=== PATIENT | male | born 1960 | race Caucasian/White ===

== ENCOUNTER → 2017-08-10 | Outpatient (CLI) | payer OTHER ==
[2017-08-10 19:57] LABS: ALBUMIN 3.7 GM/DL (3.2-5.2); ALBUMIN/GLOBULIN RATIO 1.03 (1.00-1.93); ALKALINE PHOSPHATASE 93 U/L (45-117); ALT/SGPT 45 U/L (12-78); ANION GAP 6 MEQ/L (8-16); AST/SGOT 32 U/L (7-37); BILIRUBIN,TOTAL 0.5 MG/DL (0.2-1.0); BLOOD UREA NITROGEN 14 MG/DL (7-18); CALCIUM LEVEL 8.5 MG/DL (8.5-10.1); CARBON DIOXIDE LEVEL 30 MEQ/L (21-32); CHLORIDE LEVEL 103 MEQ/L (98-107); CREATININE FOR GFR 1.23 MG/DL (0.70-1.30); GLOMERULAR FILTRATION RATE > 60.0 (>56); GLUCOSE, FASTING 84 MG/DL (70-105); POTASSIUM SERUM 3.6 MEQ/L (3.5-5.1); SODIUM LEVEL 139 MEQ/L (136-145); TOTAL PROTEIN 7.3 GM/DL (6.4-8.2)
[2017-08-10 20:00] LABS: BASO % 0.4 % (0.0-1.0); EOS # 0.3 10^3/uL (0.0-0.50); EOS % 3.7 % (0.0-3.0); IMMATURE GRANULOCYTE % 0.4 % (0-0); LYMPH # 1.5 10^3/uL (1.5-4.5); LYMPH % 20.3 % (24.0-44.0); MEAN CORPUSCULAR HEMOGLOBIN 36.2 pg (27.0-33.0); MEAN CORPUSCULAR HGB CONC 36.1 g/dl (32.0-36.5); MEAN CORPUSCULAR VOLUME 100.4 fl (80.0-96.0); MONO # 0.6 10^3/uL (0.0-0.8); MONO % 7.8 % (0.0-5.0); NEUTROPHILS % 67.4 % (36.0-66.0); PLATELET COUNT, AUTOMATED 162 10^3/uL (150-450); WHITE BLOOD COUNT 7.4 10^3/uL (4.0-10.0)
== END ==
LOC: M WUC 14:46
PROVIDERS: ATTEND Physician Assistant
DX: R11.10 Vomiting, unspecified (principal)

== ENCOUNTER → 2017-11-27 | Outpatient (CLI) | payer OTHER ==
[2017-11-27 16:34] LABS: HEMATOCRIT 46.4 % (42.0-52.0); HEMOGLOBIN 16.9 g/dl (14.0-18.0); MEAN CORPUSCULAR HEMOGLOBIN 36.4 pg (27.0-33.0); MEAN CORPUSCULAR HGB CONC 36.4 g/dl (32.0-36.5); PLATELET COUNT, AUTOMATED 172 10^3/uL (150-450); RED BLOOD COUNT 4.64 10^6/uL (4.30-6.10); RED CELL DISTRIBUTION WIDTH 12.5 % (11.5-14.5); WHITE BLOOD COUNT 6.8 10^3/uL (4.0-10.0)
[2017-11-27 16:42] LABS: APPEARANCE, URINE CLEAR (CLEAR); BACTERIA, URINE AUTO NEGATIVE (NEGATIVE); BILIRUBIN, URINE AUTO NEGATIVE (NEGATIVE); BLOOD, URINE BLOOD 1+ (NEGATIVE); COLOR, URINE YELLOW (YELLOW); GLUCOSE, URINE (UA) AUTO NEGATIVE (NEGATIVE); KETONE, URINE AUTO NEGATIVE (NEGATIVE); LEUKOCYTE ESTERASE, URINE AUTO NEGATIVE (NEGATIVE); MUCUS, URINE SMALL (NEGATIVE); NITRITE, URINE AUTO NEGATIVE (NEGATIVE); PROTEIN, URINE AUTO NEGATIVE (NEGATIVE); RBC, URINE AUTO 5 /HPF (0-3); SPECIFIC GRAVITY URINE AUTO 1.023 (1.002-1.035); SQUAMOUS EPITHELIAL CELL UR AU 0 /HPF (0-6); WBC, URINE AUTO 0 /HPF (0-3)
[2017-11-27 16:52] LABS: ALBUMIN/GLOBULIN RATIO 1.14 (1.00-1.93); ALKALINE PHOSPHATASE 99 U/L (45-117); ALT/SGPT 36 U/L (12-78); ANION GAP 8 MEQ/L (8-16); AST/SGOT 29 U/L (7-37); BILIRUBIN,TOTAL 0.7 MG/DL (0.2-1.0); BLOOD UREA NITROGEN 18 MG/DL (7-18); CALCIUM LEVEL 8.7 MG/DL (8.5-10.1); CARBON DIOXIDE LEVEL 26 MEQ/L (21-32); CHLORIDE LEVEL 104 MEQ/L (98-107); CHOLESTEROL LEVEL 197 MG/DL (<200); CREATININE FOR GFR 1.24 MG/DL (0.70-1.30); GLOMERULAR FILTRATION RATE > 60.0 (>56); GLUCOSE, FASTING 79 MG/DL (70-100); HDL CHOLESTEROL 50 MG/DL (>40); LDL CHOLESTEROL 124.6 MG/DL (<100); MAGNESIUM LEVEL 1.9 MG/DL (1.8-2.4); NON-HDL-C 147 MG/DL; SODIUM LEVEL 138 MEQ/L (136-145); TOTAL PROTEIN 7.5 GM/DL (6.4-8.2); TRIGLYCERIDES LEVEL 112 MG/DL (<150)
== END ==
LOC: M WUC 13:52
DX: D75.89 Other specified diseases of blood and blood-forming organs (principal); I10 Essential (primary) hypertension; E78.00 Pure hypercholesterolemia, unspecified; F41.9 Anxiety disorder, unspecified; R31.29 Other microscopic hematuria
CPT/HCPCS: 83735

== ENCOUNTER 2017-12-20 18:46 | Emergency (ER) | payer OTHER | END 2017-12-20 20:19 | disposition home or self-care (01) | LOC: M ED 18:46 | DX: S63.91XA Sprain of unspecified part of right wrist and hand, initial encounter (principal); W01.0XXA Fall on same level from slipping, tripping and stumbling without subsequent striking against object, initial encounter; Y92.59 Other trade areas as the place of occurrence of the external cause; Y99.0 Civilian activity done for income or pay; I10 Essential (primary) hypertension; K21.9 Gastro-esophageal reflux disease without esophagitis; Z79.899 Other long term (current) drug therapy; Z88.1 Allergy status to other antibiotic agents | CPT/HCPCS: 73110 ==

== ENCOUNTER 2018-02-22 09:35 | Day surgery (SDC) | payer OTHER ==
[2018-02-22] MEDS: NS 1,000 ML IV (10:45)
[2018-02-22] MEDS ORDERED: PROPOFOL 200 MG/20 ML VIAL As Ordered ×3 (11:14→11:37)
[2018-02-22] MEDS ORDERED: LIDOCAINE 2% INJ 100 MG/5 ML SDV (FOR ANES.) As Ordered (11:14)
== END 2018-02-22 12:13 | disposition home or self-care (01) ==
LOC: M OPP 09:35
DX: Z12.11 Encounter for screening for malignant neoplasm of colon (principal); K63.5 Polyp of colon; D12.2 Benign neoplasm of ascending colon; K57.30 Diverticulosis of large intestine without perforation or abscess without bleeding; I10 Essential (primary) hypertension; F41.9 Anxiety disorder, unspecified; K21.9 Gastro-esophageal reflux disease without esophagitis; K58.9 Irritable bowel syndrome, unspecified; Z79.899 Other long term (current) drug therapy; Z88.8 Allergy status to other drugs, medicaments and biological substances; Z80.0 Family history of malignant neoplasm of digestive organs; Z82.49 Family history of ischemic heart disease and other diseases of the circulatory system
CPT/HCPCS: 45385

== ENCOUNTER → 2018-06-17 | Outpatient (CLI) | payer OTHER ==
[2018-06-17 17:53] LABS: ALBUMIN 3.9 GM/DL (3.2-5.2); ALBUMIN/GLOBULIN RATIO 1.15 (1.00-1.93); ALKALINE PHOSPHATASE 84 U/L (45-117); ALT/SGPT 30 U/L (12-78); ANION GAP 7 MEQ/L (8-16); AST/SGOT 19 U/L (7-37); BILIRUBIN,TOTAL 0.4 MG/DL (0.2-1.0); BLOOD UREA NITROGEN 17 MG/DL (7-18); CARBON DIOXIDE LEVEL 27 MEQ/L (21-32); CHLORIDE LEVEL 106 MEQ/L (98-107); CHOLESTEROL LEVEL 193 MG/DL (<200); CHOLESTEROL RISK RATIO 3.446 (<5); CREATININE FOR GFR 1.33 MG/DL (0.70-1.30); GLOMERULAR FILTRATION RATE 59.2 (>56); GLUCOSE, FASTING 82 MG/DL (70-100); HDL CHOLESTEROL 56 MG/DL (>40); LDL CHOLESTEROL 112 MG/DL (<100); MAGNESIUM LEVEL 1.9 MG/DL (1.8-2.4); NON-HDL-C 137 MG/DL; POTASSIUM SERUM 4.4 MEQ/L (3.5-5.1); PROSTATIC SPECIFIC AG MONITOR 0.41 NG/ML (< 4.0); SODIUM LEVEL 140 MEQ/L (136-145); TOTAL PROTEIN 7.3 GM/DL (6.4-8.2); TRIGLYCERIDES LEVEL 125 MG/DL (<150)
[2018-06-17 18:02] LABS: FOLATE 16.8 NG/ML
== END ==
LOC: M WUC 15:10
DX: I10 Essential (primary) hypertension (principal); Z12.5 Encounter for screening for malignant neoplasm of prostate; E53.8 Deficiency of other specified B group vitamins

== ENCOUNTER → 2019-04-03 | Outpatient (CLI) | payer OTHER ==
[~2019-04-03] MED LIST: ALLE180T33 PO; AMLO10CA22 PO; AMLO5CAP44 PO; CITA20TA6 PO; DICY10SO PO; FLUTISP; FOLI1TAB11 PO; FOLI800C PO; GREE1TAB PO; HYOS0.1248 PO; IBUP-1022 PO; LEVOTAB10 PO; OMEP20CA4 PO; OMEP40CA2 PO; ONDA4SOL PO; VENTAER INH; VITA500T17 PO; XANA0.25 PO; ZOFR4TAB16 PO; allergy shots
--- NOTE | 2019-04-04 07:52 | REP ---
Left knee five views : There is no fracture or dislocation. Mineralization and joint spaces are normal. There are no calcifications or foreign bodies. Impression: Negative left knee . Electronically Signed by El Vizcaino MD 04/03/2019 01:03 P
== END ==
LOC: M WUC 12:38
PROVIDERS: ATTEND Physician Assistant
DX: S86.112A Strain of other muscle(s) and tendon(s) of posterior muscle group at lower leg level, left leg, initial encounter (principal)

== ENCOUNTER → 2019-04-18 | Outpatient (REF) | payer OTHER ==
[2019-04-18 17:41] LABS: HEMATOCRIT 48.1 % (42.0-52.0); HEMOGLOBIN 17.3 g/dl (13.5-17.5); MEAN CORPUSCULAR HEMOGLOBIN 36.9 pg (27.0-33.0); MEAN CORPUSCULAR VOLUME 102.6 fl (80.0-96.0); PLATELET COUNT, AUTOMATED 179 10^3/uL (150-450); RED BLOOD COUNT 4.69 10^6/uL (4.30-6.10); WHITE BLOOD COUNT 7.7 10^3/uL (4.0-10.0)
[2019-04-18 18:01] LABS: ALBUMIN 4.1 GM/DL (3.2-5.2); BILIRUBIN,TOTAL 0.5 MG/DL (0.2-1.0); CALCIUM LEVEL 8.6 MG/DL (8.5-10.1); CHOLESTEROL RISK RATIO 3.705 (<5); CREATININE FOR GFR 1.31 MG/DL (0.70-1.30); MAGNESIUM LEVEL 2.3 MG/DL (1.8-2.4); POTASSIUM SERUM 3.9 MEQ/L (3.5-5.1); TOTAL PROTEIN 7.7 GM/DL (6.4-8.2)
[2019-04-21 00:08] LABS: Lyme Disease IgG/IgM Antibodie <0.91 ISR (0.00-0.90); Lyme Disease IgM Ab Quantitati <0.80 index (0.00-0.79)
== END ==
LOC: M SFHCPLAZ 15:36
PROVIDERS: ATTEND Internal Medicine
DX: D75.89 Other specified diseases of blood and blood-forming organs (principal); I10 Essential (primary) hypertension; E78.00 Pure hypercholesterolemia, unspecified

== ENCOUNTER → 2019-11-16 | Outpatient (REF) | payer OTHER ==
[~2019-11-16] MED LIST changes: +OMEP1CAP73 PO; -OMEP20CA4 PO; -OMEP40CA2 PO; +OMEP40CA97 PO
[2019-11-16 11:38] LABS: APPEARANCE, URINE CLEAR (CLEAR); BACTERIA, URINE AUTO NEGATIVE (NEGATIVE); BILIRUBIN, URINE AUTO NEGATIVE (NEGATIVE); BLOOD, URINE BLOOD 1+ (NEGATIVE); COLOR, URINE YELLOW (YELLOW); GLUCOSE, URINE (UA) AUTO NEGATIVE (NEGATIVE); KETONE, URINE AUTO NEGATIVE (NEGATIVE); LEUKOCYTE ESTERASE, URINE AUTO NEGATIVE (NEGATIVE); NITRITE, URINE AUTO NEGATIVE (NEGATIVE); PROTEIN, URINE AUTO NEGATIVE (NEGATIVE); RBC, URINE AUTO 3 /HPF (0-3); SPECIFIC GRAVITY URINE AUTO 1.012 (1.002-1.035); SQUAMOUS EPITHELIAL CELL UR AU 0 /HPF (0-6); UROBILINOGEN, URINE AUTO 0.2 mg/dL (0.0-2.0); WBC, URINE AUTO 0 /HPF (0-3)
[2019-11-16 11:51] LABS: ALBUMIN 3.8 GM/DL (3.2-5.2); ALT/SGPT 40 U/L (12-78); BILIRUBIN,TOTAL 0.3 MG/DL (0.2-1.0); BLOOD UREA NITROGEN 15 MG/DL (7-18); CALCIUM LEVEL 9.4 MG/DL (8.5-10.1); CARBON DIOXIDE LEVEL 27 MEQ/L (21-32); CHLORIDE LEVEL 107 MEQ/L (98-107); CHOLESTEROL LEVEL 193 MG/DL (<200); CHOLESTEROL RISK RATIO 4.595 (<5); CREATININE FOR GFR 1.23 MG/DL (0.70-1.30); GLOMERULAR FILTRATION RATE > 60.0 (>56); GLUCOSE, FASTING 88 MG/DL (70-100); HDL CHOLESTEROL 42 MG/DL (>40); LDL CHOLESTEROL 94 MG/DL (<100); NON-HDL-C 151 MG/DL; SODIUM LEVEL 139 MEQ/L (136-145); TOTAL PROTEIN 7.6 GM/DL (6.4-8.2); TRIGLYCERIDES LEVEL 284 MG/DL (<150)
[2019-11-16 11:52] LABS: HEMATOCRIT 47.8 % (42.0-52.0); HEMOGLOBIN 17.1 g/dl (13.5-17.5); MEAN CORPUSCULAR HEMOGLOBIN 37.5 pg (27.0-33.0); MEAN CORPUSCULAR HGB CONC 35.8 g/dl (32.0-36.5); MEAN CORPUSCULAR VOLUME 104.8 fl (80.0-96.0); PLATELET COUNT, AUTOMATED 181 10^3/uL (150-450); RED BLOOD COUNT 4.56 10^6/uL (4.30-6.10); WHITE BLOOD COUNT 7.6 10^3/uL (4.0-10.0)
[2019-11-16 11:55] LABS: FOLATE 12.8 NG/ML; VITAMIN B12 LEVEL 746 PG/ML
[2019-11-16 12:14] LABS: MAU/CREAT RATIO 4.6 MCG/MG (0.0-30.0)
== END ==
LOC: M SFHCPLAZ 09:03
PROVIDERS: ATTEND Internal Medicine
DX: K21.9 Gastro-esophageal reflux disease without esophagitis (principal); E78.00 Pure hypercholesterolemia, unspecified; I10 Essential (primary) hypertension; R31.29 Other microscopic hematuria; E53.8 Deficiency of other specified B group vitamins
CPT/HCPCS: 36415; 80053; 80061; 81001; 82043; 82607; 82746; 83735; 85027; G0103

== ENCOUNTER → 2020-11-14 | Outpatient (CLI) | payer OTHER ==
[2020-11-14 16:51] LABS: ALT/SGPT 50 U/L (12-78); BILIRUBIN,TOTAL 0.3 MG/DL (0.2-1.0); BLOOD UREA NITROGEN 19 MG/DL (7-18); CALCIUM LEVEL 9.4 MG/DL (8.5-10.1); CARBON DIOXIDE LEVEL 26 MEQ/L (21-32); CHLORIDE LEVEL 104 MEQ/L (98-107); CHOLESTEROL LEVEL 177 MG/DL (<200); GLOMERULAR FILTRATION RATE > 60.0 (>56); GLUCOSE, FASTING 83 MG/DL (70-100); HDL CHOLESTEROL 50 MG/DL (>40); LDL CHOLESTEROL 111 MG/DL (<100); MAGNESIUM LEVEL 1.8 MG/DL (1.8-2.4); NON-HDL-C 127 MG/DL; POTASSIUM SERUM 4.2 MEQ/L (3.5-5.1); SODIUM LEVEL 136 MEQ/L (136-145); TOTAL PROTEIN 7.3 GM/DL (6.4-8.2); TRIGLYCERIDES LEVEL 82 MG/DL (<150)
== END ==
LOC: M WUC 14:08
PROVIDERS: ATTEND Internal Medicine
DX: E78.00 Pure hypercholesterolemia, unspecified (principal); I10 Essential (primary) hypertension

== ENCOUNTER 2020-12-06 05:51 | Inpatient (IN) | payer OTHER ==
[~2020-12-06] VITALS: Ht 182.9 cm; Wt 93.3 kg
[2020-12-06] MEDS ORDERED: ONDANSETRON 4MG/2ML VIAL IV ONE (06:15)
[2020-12-06] MEDS ORDERED: NITROGLYCERIN 2% OINT 1 GM *U/D* PKT TOP ONE (06:20)
[2020-12-06] MEDS ORDERED: ASPIRIN 81 MG CHEW TABLET PO ONE (06:20)
[2020-12-06 06:23] LABS: BASO % 0.2 % (0.0-1.0); EOS # 0.1 10^3/uL (0.0-0.5); EOS % 1.1 % (0.0-3.0); HEMATOCRIT 45.8 % (42.0-52.0); HEMOGLOBIN 16.7 g/dl (13.5-17.5); LYMPH # 1.4 10^3/uL (1.5-5.0); MEAN CORPUSCULAR HEMOGLOBIN 38.1 pg (27.0-33.0); MEAN CORPUSCULAR HGB CONC 36.5 g/dl (32.0-36.5); MEAN CORPUSCULAR VOLUME 104.6 fl (80.0-96.0); MONO # 0.8 10^3/uL (0.0-0.8); MONO % 6.3 % (2.0-8.0); NEUTROPHILS % 80.8 % (36.0-66.0); PLATELET COUNT, AUTOMATED 204 10^3/uL (150-450); RED BLOOD COUNT 4.38 10^6/uL (4.30-6.10); WHITE BLOOD COUNT 12.3 10^3/uL (4.0-10.0)
--- NOTE | 2020-12-06 06:33 | REPVR ---
PROCEDURE INFORMATION: Exam: XR Chest Exam date and time: 12/06/2020 6:04 AM Age: 60 years old Clinical indication: Other: Chest pain TECHNIQUE: Imaging protocol: XR of the chest Views: 1 view. COMPARISON: No relevant prior studies available. FINDINGS: Lungs: No consolidation. Elevation of the left hemidiaphragm is present. Small subsegmental atelectases are seen in both lower lungs. Pleural spaces: Unremarkable. No pleural effusion. No pneumothorax. Heart/Mediastinum: Unremarkable. No cardiomegaly. Bones/joints: Unremarkable. IMPRESSION: Small subsegmental pulmonary atelectases are seen in both lower lobes, otherwise normal chest. Electronically signed by: Michael Gutierrez On 12/06/2020 06:32:50 AM
[2020-12-06 06:51] LABS: BLOOD UREA NITROGEN 12 MG/DL (7-18); CALCIUM LEVEL 8.9 MG/DL (8.5-10.1); CARBON DIOXIDE LEVEL 23 MEQ/L (21-32); CHLORIDE LEVEL 110 MEQ/L (98-107); CK-MB VALUE MASS 1.3 NG/ML (<3.6); CPK CREATINE PHOSPHOKINASE 113 U/L (39-308); CREATININE FOR GFR 1.19 MG/DL (0.70-1.30); ETHYL ALCOHOL (ETHANOL) 0.051 % (0.000-0.010); GLOMERULAR FILTRATION RATE > 60.0 (>56); GLUCOSE, FASTING 104 MG/DL (70-100); MB/CK RELATIVE INDEX 1.15 (< OR =4); POTASSIUM SERUM 3.9 MEQ/L (3.5-5.1); SODIUM LEVEL 141 MEQ/L (136-145); TROPONIN I < 0.02 NG/ML (< 0.10)
[2020-12-06] MEDS ORDERED: NS 500 ML IV ONE (06:55)
[2020-12-06] MEDS ORDERED: GI COCKTAIL 50ML BTL(HYOSCYAMINE/MAALOX/LIDOCAINE VISCOUS)(1:3:1) PO ONE (06:55)
[2020-12-06] MEDS ORDERED: MORPHINE 2 MG/ML 1ML VIAL (J2270) IV ONE (06:55)
[2020-12-06 06:58] LABS: INR 0.92; PROTHROMBIN TIME 12.6 SECONDS (12.5-14.3)
[2020-12-06 06:59] LABS: PARTIAL THROMBOPLASTIN TIME 31.6 SECONDS (24.2-38.5)
--- NOTE | 2020-12-06 07:22 | ECGEPIP ---
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
--- NOTE | 2020-12-06 07:23 | ECGEPIP ---
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
[2020-12-06] MEDS ORDERED: MORPHINE 4 MG/ML 1ML VIAL/SYRINGE (J2270) As Ordered ONE (07:49)
[2020-12-06] MEDS ORDERED: BENAZEPRIL 20 MG TAB PO ONE (07:50)
[2020-12-06] MEDS ORDERED: amLODIPine 5 MG TAB PO ONE (07:50)
[2020-12-06] MEDS ORDERED: LORazepam 2 MG/ML VIAL IV STA ×2 (07:50→10:08)
[2020-12-06] MEDS ORDERED: MORPHINE 4 MG/ML 1ML VIAL/SYRINGE (J2270) IV ONE ×2 (07:50→11:55)
[2020-12-06 11:36] LABS: CK-MB VALUE MASS 1.1 NG/ML (<3.6); CPK CREATINE PHOSPHOKINASE 105 U/L (39-308); MB/CK RELATIVE INDEX 1.05 (< OR =4); TROPONIN I < 0.02 NG/ML (< 0.10)
[2020-12-06] MEDS ORDERED: ISOVUE-370 76% 100ML VIAL As Ordered ONE (11:54)
[2020-12-06] MEDS ORDERED: OXAZEPAM 15 MG CAP PO ONE (12:25)
--- NOTE | 2020-12-06 13:03 | REP ---
INDICATION: pleuritic cp, short of breath. COMPARISON: AP portable chest 12/06/2020 TECHNIQUE: CT angiogram chest performed following the intravenous administration of 75 cc of Isovue 370. Sagittal and coronal reconstruction images are performed with standard and MIP reformatted images provided. FINDINGS: Lungs: Are bilateral lower lobe consolidative infiltrates or atelectasis some of which could not be seen on the portable chest as they are below the level of the diaphragm. No pleural effusion. Zone of triangular opacity inferior lingular segment of the left upper lobe adjacent to the diaphragm and chest wall in the anterior lower chest. There is a subsegmental atelectatic change and dependent atelectasis throughout the posterior aspect of both lower lobes above the deep sulcus dense consolidative opacities. Minor dependent atelectatic changes in the upper lobes about the major fissure margins. I see no pulmonary nodule or parenchymal mass. Such findings could be obscured in the zones of consolidation in the deep sulci in both lower lobes. Mediastinum: No adenopathy. Pulmonary arteries: The main, right and left pulmonary arteries in the mediastinum are prominent and without filling defects. The visible lobar and segmental pulmonary arteries are without gross filling defects. Segmental and subsegmental arteries are poorly evaluated posteriorly in the lower lobes. I am suspicious for some segmental and some subsegmental filling defects in the posterior lower lung zones but image quality limitations preclude definitive diagnosis on these images.. Marina: No adenopathy. Axilla: No adenopathy. Pleura: No effusion. Heart: Not enlarged. No pericardial thickening or effusion Thoracic aorta: Some aortic ectasia of the ascending aorta up to 4.3 cm in AP diameter a but no gross aneurysm or dissection. No atherosclerotic calcifications. Upper abdominal structures: No hiatal hernia. Right hepatic lobe simple cyst 2.3 cm and low-density 5 mm focus in the left hepatic lobe too small to define. No ascites. There is small layering debris/gravel in the gallbladder. Adrenal glands intact portion of pancreas seen unremarkable. Upper poles of kidneys show exophytic cysts bilaterally. Sternum, manubrium, medial clavicles, scapulae, portions of humeral heads, visualized ribs and spine without fracture or destructive lesion marginal osteophytes midthoracic spine. Visualized osseous structures: Sternum, manubrium, medial clavicles, scapulae, portions of humeral heads, visualized ribs and spine without fracture or destructive lesion marginal osteophytes midthoracic spine. IMPRESSION: There is no evidence of central pulmonary emboli in the main, right or left pulmonary arteries nor in the lobar arteries. Posterior and lower lung zone with segmental and subsegmental arteries not well depicted due to some respiratory motion blur. I am suspicious for possible pulmonary emboli but cannot confidently define or exclude at this time. Follow-up CTA in 24 hours recommended. No mediastinal adenopathy or mass. Extensive consolidative atelectasis or infiltrates posterior lower lung zones and dependent atelectatic changes throughout lower lobes. No gross effusion. There is a single zone of triangular atelectatic change in the inferior lingular segment at left base. No aortic aneurysm or dissection. Upper abdomen without acute finding. <Electronically signed by Cody Chandler > 12/06/20 1300
[2020-12-06] MEDS ORDERED: MORPHINE 2 MG/ML 1ML VIAL (J2270) IV PRN (13:20)
[2020-12-06] MEDS ORDERED: ACETAMINOPHEN TAB 650MG DOSE (2X325MG) PO PRN (13:20)
[2020-12-06] MEDS ORDERED: LOTR52CA PO (13:34)
[2020-12-06] MEDS ORDERED: DICY10CA13 PO (13:34)
[2020-12-06] MEDS ORDERED: EQL50TAB2 PO (13:34)
[2020-12-06] MEDS ORDERED: ONDA4TAB6 PO (13:34)
--- NOTE | 2020-12-06 14:18 | REP ---
INDICATION: UNCONTROLLED HTN. COMPARISON: 10/20/2012. TECHNIQUE: Real-time sonographic evaluation of the kidneys is performed. FINDINGS: Renal cortical echogenicity pattern is normal bilaterally and contours are smooth. There is no hydronephrosis bilaterally. There is a cyst in the mid right kidney measuring 2.2 cm in diameter, another is seen in the upper pole 1.7 cm in diameter. A cyst in the upper pole the left kidney measures 4.9 cm and another in the inferior aspect measures 1.5 cm. The right kidney measures 11.1 x 6.0 x 5.5 cm. Left renal dimensions are 11.8 x 4.8 x 5.9 cm. IMPRESSION: No hydronephrosis. Bilateral renal cysts as above. <Electronically signed by El Frazier > 12/06/20 [id number]
[2020-12-06] MEDS ORDERED: ALBUTEROL 90 MCG/ACT 8GM HFA INHALER INH PRN (14:30)
[2020-12-06] MEDS ORDERED: ONDANSETRON 4 MG ORAL DISINTEGRATING TAB PO PRN (14:30)
[2020-12-06] MEDS ORDERED: hydrALAZINE 20MG/ML 1ML VIAL (J0360 PER 20MG) IV SCH (15:05)
[2020-12-06] MEDS ORDERED: KETOROLAC 30 MG/ML 1ML VIAL IV ONE (15:10)
[2020-12-06] MEDS ORDERED: hydrALAZINE 20MG/ML 1ML VIAL (J0360 PER 20MG) IV PRN (15:15)
[2020-12-06 15:16] LABS: VITAMIN B12 LEVEL 447 PG/ML (247-911)
[2020-12-06 15:17] LABS: FOLATE 16.5 NG/ML (>5.4)
--- NOTE | 2020-12-06 15:21 | HPEPDOC ---
[facility] Medical History & Physical Date of Admission Dec 06, 2020 Date of Service: Dec 06, 2020 Attending Physician: Alpa Michele MD History and Physical CHIEF COMPLAINT: Chest pain HISTORY OF PRESENT ILLNESS: Patient is a 60-year-old male with past medical history of hypertension, alcohol abuse, irritable bowel syndrome, white coat syndrome, anxiety, anemia, questionable asthma, GERD, history of Covid 19 infection 07/2021 presented to [facility] emergency room with the chief complaint of sudden onset of chest pain early this morning. Pain came on suddenly at 3:30 this morning, sharp in thelma cter, radiated to bilateral sides of the neck, 8/10 on pain scale, intermittent, worsened with movement. Chest pain was worsened with the breathing. The patient took a total over several hours of 1000 mg of ibuprofen. The patient has a history of Covid 19 infection in 2020 but denies recent travel, history of DVT or pulmonary emboli, history of blood disorder, hx of hormone therapy, coughing, dysuria, diaphoresis, diarrhea, abdominal pain, blurry vision. He admitted to chills and some increased shortness of breath along with the chest pain at home. Due to not improving the patient's was brought to the hospital for further evaluation. In the emergency room vital signs showed: Heart rate 108188 sinus tachycardia, blood pressure 991854/13724, RR 18-20, 98% on room air, no respiratory dis tress. CTA of the chest was abnormal showing posterior and lower lung zone with segmental and subsegmental arteries not well depicted due to some respiratory motion blur, suspicious for possible pulmonary emboli but cannot confidently define or exclude at this time, follow-up CTA in 24 hours recommended. Extensive consolidative atelectasis or infiltrates posterior lower lung zones and dependent atelectatic changes throughout lower lobes. Blood alcohol level elevated at 0.051, WBC 12.3. Urine culture and U tox ordered along with blood cultures. It was adjusted by cardiology to increase the patient's calcium channel rajat. Although the patient is tachycardic and sweaty he drinks almost daily and last had 56 vodka tonics last evening. Alcohol withdrawal this early is unlikely but nonetheless he was given a dose of Serax. Patient was admitted for chest pain rule 2/2 to pulmonary emboli vs. acute coronary syndrome vs pneumonia, questionable alcohol withdrawal. REVIEW OF SYSTEMS: Neg except for what is mentioned above PAST MEDICAL HISTORY: Hypertension, alcohol abuse, irritable bowel syndrome, anxiety, anemia, questionable asthma, GERD, history of Covid 19 infection 07/2021, white coat syndrome PAST SURGICAL HISTORY: 2 left knee surgeries, one in the right knee surgery, right trigger finger surgery FAMILY HISTORY: Father: Hypertension, bone cancer with metastasis. at 57 years old Mother: Hypertension, congestive heart failure. at 88 years old SOCIAL HISTORY: Denies smoking or drug use history. Drinks 22 nights out of the month, liquor and beer. On average 56 drinks during those nights. He denies ever having had alcohol abuse issues, never gone to rehabilitation. 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 He lives with his family locally and has no handicaps. He is a full code. ALLERGIES: Please see below. HOME MEDICATIONS: Please see below. PHYSICAL EXAMINATION: VS: HR [id number] sinus tachycardia, BP 872233/43546, RR 18, 98% on RA CONSTITUTIONAL: No acute distress, resting comfortably, AAO x 3 EYES: PERRLA, EOM intact HENT, MOUTH: Normocephalic, atraumatic, moist mucous membranes NECK: SUPPLE, no JVD, no lymphadenopathy, no carotid bruit CV: sinus tachycardia , S1S2 normal, no murmurs/rubs/gallops CHEST: no recreatable, palpable pain of the chest wall RESPIRATORY:Pain with deep inspiration, Clear to auscultation bilaterally, no rales/rhonchi/wheezes GI: BS positive in 4 quadrants, soft, nontender, nondistended, no rebound or guarding, no organomegaly : Deferred MUSCULOSKELETAL: Sweaty palms. Normal ROM of all joints. No cyanosis, clubbing, swelling, joint deformity, extremity edema INTEGUMENTARY: Intact, no rashes, no lesions, no erythema NEUROLOGIC: no tremoring or shaking, Cranial Nerves II-XII are intact, no focal deficits PSYCHIATRIC: Mood and affect are normal LABORATORY DATA: Please see below MICROBIOLOGY: BCx , sputum cx and UA with reflex to culture ordered- f/u results IMAGING: CTA chest: There is no evidence of central pulmonary emboli in the main, right or left pulmonary arteries nor in the lobar arteries. Posterior and lower lung zone with segmental and subsegmental arteries not well depicted due to some respiratory motion blur. I am suspicious for possible pulmonary emboli but cannot confidently define or exclude at this time. Follow-up CTA in 24 hours recommended. No mediastinal adenopathy or mass. Extensive consolidative atelectasis or infiltrates posterior lower lung zones and dependent atelectatic changes throughout lower lobes. No gross effusion. There is a single zone of triangular atelectatic change in the inferior lingular segment at left base. No aortic aneurysm or dissection. Upper abdomen without acute finding. CXR: Small subsegmental pulmonary atelectases are seen in both lower lobes, otherwise normal chest. ASSESSMENT: 60-year-old male with past medical history of hypertension, alcohol abuse, irritable bowel syndrome, white coat syndrome, anxiety, anemia, questionable asthma, GERD, history of Covid 19 infection 07/2021 admitted for chest pain rule 2/2 to pulmonary emboli vs. acute coronary syndrome vs. pneumonia, questionable alcohol withdrawal. PLAN: Chest pain rule 2/2 to pulmonary emboli vs. PNA vs. ACS -Currently chest pain 3/10 at rest, worse with deep breathing, some movement but not recreatable with palpation of chest wall -Less likely ACS with normal trop x 2, will cycle one more set questionable alcohol withdrawal, ECG sinus tachycardia -Currently on RA -Please see below for treatment of individual issues ? Pulmonary emboli in posterior and lower lung zone with segmental and subsegmental arteries -+ pleuritic chest pain, tachycardia, SOB, sudden onset, recent COVID-19 infection -CTA above -D dimer pending -Starting on therapeutic dosing lovenox BID, incentive spirometer, pain control with tramadol and morphine. Giving 15 mg IV toradol, if improves pain significantly patient would benefit from likely anti-inflammatory on more regular basis- consider ATC tylenol to help -Suggest repeat CTA after 24 hours as also suggested by radiology Consolidative atelectasis vs. infiltrates (PNA) posterior lower lung zones, sepsis -WBC 12.3, tachycardia -F/u LA, all cultures above, daily labs -IS Q2H while awake -Albuterol PRN, Levofloxacin IV. If procalcitonin neg, can stop IV abx Hypertensive urgency -Hx of uncontrolled BP since a young age, also has Whitecoat syndrome, anxiety per patient -BP 619367/52756 -Improved with better pain control -F/u renal US to r/o anatomical cause -If BP goes up too much, decrease or stop fluids -C/w pain control above, incr amlodipine dose, lisinopril 20 mg PO daily, hydralazine PRN Alcohol abuse with concern for alcohol withdrawl -ETOH still elevated at 0.051, last drank 5-6 vodka tonics 12/05/20 -AAOx3, sweaty palms with no tremoring -CIWA protocol: ativan PRN, thiamine, folic acid, MV Anxiety -Ativan PRN IBS -Stable -C/w home meds 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 Asthma -Albuterol PRN GERD -C/w PPI DVT px -Lovenox BID DISPOSITION: Admitted as acute inpatient. Plan is discharge home when medically improved. Vital Signs Vital Signs Date Time Temp Pulse Resp B/P (MAP) Pulse Ox O2 Delivery O2 Flow Rate FiO2 12/06/20 11:47 122 142/102 (115) 12/06/20 11:45 20 95 Room Air 12/06/20 08:00 97.1 Laboratory Data Labs 24H Laboratory Tests 2 12/06/20 06:06: Immature Granulocyte % (Auto) 0.6, Neutrophils (%) (Auto) 80.8H, Lymphocytes (%) (Auto) 11.0L, Monocytes (%) (Auto) 6.3, Eosinophils (%) (Auto) 1.1, Basophils (%) (Auto) 0.2, Neutrophils # (Auto) 10.0H, Lymphocytes # (Auto) 1.4L, Monocytes # (Auto) 0.8, Eosinophils # (Auto) 0.1, Basophils # (Auto) 0.0, Nucleated Red Blood Cells % (auto) 0.0, Anion Gap 8, Glomerular Filtration Rate > 60.0, Calcium Level 8.9, Total Creatine Kinase 113, Creatine Kinase MB 1.3, Creatine Kinase MB Relative Index 1.15, Troponin I < 0.02, Ethyl Alcohol Level 0.051H 12/06/20 06:23: Prothrombin Time 12.6, Prothromb Time International Ratio 0.92, Activated Partial Thromboplast Time 31.6 12/06/20 10:39: Total Creatine Kinase 105, Creatine Kinase MB 1.1, Creatine Kinase MB Relative Index 1.05, Troponin I < 0.02 CBC/BMP Laboratory Tests 12/06/20 06:06 Home Medications Scheduled Amlodipine/Benazepril (Lotrel 5-20 mg Capsule) 1 Each Capsule, 1 EACH PO DAILY Chromium/Herbal Complex No.238 (Green Tea Caplet) 1 Tab Tab, 2 TAB PO DAILY Citalopram Hydrobromide (Citalopram HBr) 20 Mg Tab, 20 MG PO DAILY Dicyclomine HCl (Dicyclomine HCl) 10 Mg Capsule, 10 MG PO BID Fluticasone Propionate (Fluticasone Propionate) 50 Mcg/Act Spr, 1 SPRAY NA DAILY Folic Acid (Folic Acid) 1 Mg Tab, 2 MG PO DAILY Levocetirizine Dihydrochloride (Levocetirizine Dihydrochloride) 5 Mg Tab, 5 MG PO DAILY Omeprazole (Omeprazole) 20 Mg Cap, 20 MG PO DAILY Vitamin B Complex (Vitamin B Complex) 1 Each Tablet, 1 TAB PO DAILY Scheduled PRN Albuterol Sulfate (Ventolin Hfa) 108 Mcg/Act Aer, 108 MCG INH PRN PRN for WHEEZING Alprazolam (Xanax) 0.25 Mg Tab, 0.25 MG PO BIDP PRN for ANXIETY/AGITATION Ondansetron (Ondansetron Odt) 4 Mg Tab.rapdis, 4 MG PO Q6H PRN for NAUSEA OR VOMITING Miscellaneous Medications [allergy shots] Allergies Coded Allergies: ENVIROMENTAL (Verified Allergy, Unknown, 02/08/18) Sulfa (Sulfonamide Antibiotics) (Verified Allergy, Unknown, 12/06/20) azithromycin (Verified Adverse Reaction, Unknown, HEADACHE, 12/06/20) A-FIB/CHADSVASC A-FIB History Current/History of A-Fib/PAF?: No Current PO Anticoag Therapy: No Age/Risk Factor Scoring CHADSVASC: CHADSVASC Response (Comments) Value Age Risk Factor Age < 65 years old 0 Gender Risk Factor Male 0 Hx of CHF No 0 Hx of HTN Yes 1 Hx of Stroke/TIA/or VTE No 0 Hx of Diabetes No 0 Hx of Vascular Disease No 0 Total 1 Treatment Treatment ordered: Other Other anticoagulant ordered: Alpa Lovelace MD Dec 06, 2020 15:10
[2020-12-06 16:20] LABS: RSV AMPLIFICATION NEGATIVE (NEGATIVE)
[2020-12-06 16:34] LABS: FERRITIN 817 NG/ML (26-388); IRON (FE) 48 UG/DL (65-175); PERCENT SATURATION 18.3 % (19.7-50.0); TOTAL IRON BINDING CAPACITY 262 UG/DL (250-450); TROPONIN I < 0.02 NG/ML (< 0.10)
[2020-12-06] MEDS: LevoFLOXacin IV 750 MG in IV 1 EA IV SCH (17:16)
[2020-12-06 18:01] LABS: AMPHETAMINES LEVEL URINE NEGATIVE (NEGATIVE); BARBITURATES URINE NEGATIVE (NEGATIVE); BENZODIAZEPINES URINE NEGATIVE (NEGATIVE); CANNABINOIDS URINE POSITIVE (NEGATIVE); COCAINE METABOLITE URINE NEGATIVE (NEGATIVE); METHADONE URINE NEGATIVE (NEGATIVE); OPIATES URINE POSITIVE (NEGATIVE); PHENCYCLIDINE URINE NEGATIVE (NEGATIVE)
[2020-12-06 18:14] LABS: C REACTIVE PROTEIN QUANTITATIV 7.68 MG/DL (0.00-0.30)
[2020-12-06 20:26] VITALS: BP 141/93
[2020-12-06 20:30] VITALS: BP 141/93
[2020-12-06] MEDS: OMEPRAZOLE 20 MG CAP PO SCH (20:30)
[2020-12-06] MEDS: THIAMINE 100 MG TAB PO SCH ×2 (20:30→20:37)
[2020-12-06] MEDS: MULTIVITAMINS/MINERALS THERAP 1 TAB PO SCH (20:30)
[2020-12-06] MEDS: FOLIC ACID 1 MG TAB PO SCH (20:30)
[2020-12-06] MEDS: ENOXAPARIN 100MG/1ML SYRINGE (J1650 PER 10MG) SC SCH (20:31)
[2020-12-06] MEDS: DICYCLOMINE 10 MG CAP PO SCH (20:34)
[2020-12-06] MEDS: NS 1,000 ML IV SCH ×2 (20:36→23:20)
[2020-12-06] MEDS: RAMELTEON 8 MG TAB (ROZEREM) PO SCH (22:39)
[2020-12-06 23:30] VITALS: BP 150/97
[2020-12-06 23:44] VITALS: BP 150/97
[2020-12-07] VITALS (17 sets, daily range): BP systolic 123–157; BP diastolic 53–106
[2020-12-07] MEDS: NS 1,000 ML IV SCH ×2 (06:02→19:20)
[2020-12-07] MEDS: ENOXAPARIN 100MG/1ML SYRINGE (J1650 PER 10MG) SC SCH ×2 (06:02→17:32)
[2020-12-07] MEDS: traMADol 50 MG TAB PO PRN ×2 (06:09→07:06)
[2020-12-07 07:47] LABS: HEMATOCRIT 45.6 % (42.0-52.0); HEMOGLOBIN 16.4 g/dl (13.5-17.5); MEAN CORPUSCULAR HEMOGLOBIN 38.1 pg (27.0-33.0); MEAN CORPUSCULAR VOLUME 105.8 fl (80.0-96.0); PLATELET COUNT, AUTOMATED 166 10^3/uL (150-450); RED BLOOD COUNT 4.31 10^6/uL (4.30-6.10); WHITE BLOOD COUNT 10.2 10^3/uL (4.0-10.0)
[2020-12-07 08:13] LABS: ALBUMIN 3.4 GM/DL (3.2-5.2); ALT/SGPT 28 U/L (12-78); BILIRUBIN,TOTAL 0.6 MG/DL (0.2-1.0); BLOOD UREA NITROGEN 13 MG/DL (7-18); CALCIUM LEVEL 8.7 MG/DL (8.5-10.1); CARBON DIOXIDE LEVEL 24 MEQ/L (21-32); CHLORIDE LEVEL 108 MEQ/L (98-107); CREATININE FOR GFR 1.05 MG/DL (0.70-1.30); GLOMERULAR FILTRATION RATE > 60.0 (>56); GLUCOSE, FASTING 96 MG/DL (70-100); POTASSIUM SERUM 3.8 MEQ/L (3.5-5.1); SODIUM LEVEL 140 MEQ/L (136-145); TOTAL PROTEIN 6.9 GM/DL (6.4-8.2)
[2020-12-07] MEDS: FLUTICASONE PROP 0.05% NASAL SPRAY 16 GM (FLONASE) SCH (08:18)
[2020-12-07] MEDS: THIAMINE 100 MG TAB PO SCH ×2 (08:19→20:40)
[2020-12-07] MEDS: MULTIVITAMINS/MINERALS THERAP 1 TAB PO SCH (08:19)
[2020-12-07] MEDS: OMEPRAZOLE 20 MG CAP PO SCH (08:19)
[2020-12-07] MEDS: FOLIC ACID 1 MG TAB PO SCH (08:19)
[2020-12-07] MEDS: CitaloPRAM (CeleXA) 20 MG TAB PO SCH (08:20)
[2020-12-07] MEDS: DICYCLOMINE 10 MG CAP PO SCH ×2 (11:53→20:40)
[2020-12-07] MEDS ORDERED: ISOVUE-370 76% 100ML VIAL As Ordered ONE (11:54)
[2020-12-07] MEDS: LORazepam 2 MG TAB PO PRN ×2 (12:31→20:40)
--- NOTE | 2020-12-07 12:58 | REP ---
INDICATION: question PE. COMPARISON: Chest CT with IV contrast dated 12/06/2020. TECHNIQUE: Chest CT with IV contrast, CT angiography. FINDINGS: On the comparison study the posterior and lower lobe peripheral pulmonary arteries were not well depicted because of respiratory motion and bilateral lower lobe infiltrates. On the study today the bilateral lower lobe infiltrates as significantly decreased. There is no motion artifact. The posterior and lower lobe pulmonary arteries demonstrate no intraluminal emboli. There are no emboli in the pulmonary trunk or central pulmonary arteries as previously. There are no emboli in the lobe or segment pulmonary arteries. As is indicated the bilateral lower lobe infiltrates has significantly decreased in size. There are no pleural effusions. There are no lung masses or nodules. There is no mediastinal, hilar axillary lymph node enlargement. The thoracic aorta is unremarkable. Cardiac size is normal. There is no pericardial effusion. The visualized areas of the liver, gallbladder, pancreas, spleen, adrenals and renal upper poles are unremarkable except for an hepatic cyst and renal upper pole cysts, unchanged. IMPRESSION: There are no pulmonary emboli. The bilateral lower lobe infiltrates has significantly decreased in size. <Electronically signed by El Vizcaino > 12/07/20 [id number]
[2020-12-07] MEDS: METOPROLOL 5 MG/5 ML VIAL IV SCH ×3 (13:12→13:40)
[2020-12-07] MEDS: METOPROLOL TART 12.5 MG PER 1/2 TAB PO SCH ×2 (14:09→17:33)
[2020-12-07] MEDS: LevoFLOXacin IV 750 MG in IV 1 EA IV SCH (15:44)
--- NOTE | 2020-12-07 18:37 | REP ---
INDICATION: New onset afib. COMPARISON: Portable chest dated 12/06/2020. TECHNIQUE: Upright PA and lateral chest. FINDINGS: The lung kay are clear. Cardiac size is normal. The benito, mediastinum and skeletal structures are unremarkable. IMPRESSION: Essentially negative PA and lateral chest <Electronically signed by El Vizcaino > 12/07/20 [id number]
[2020-12-07 18:56] LABS: ALBUMIN 3.4 GM/DL (3.2-5.2); BLOOD UREA NITROGEN 14 MG/DL (7-18); CALCIUM LEVEL 8.8 MG/DL (8.5-10.1); CARBON DIOXIDE LEVEL 23 MEQ/L (21-32); CHLORIDE LEVEL 108 MEQ/L (98-107); CREATININE FOR GFR 1.11 MG/DL (0.70-1.30); GLOMERULAR FILTRATION RATE > 60.0 (>56); GLUCOSE, FASTING 113 MG/DL (70-100); MAGNESIUM LEVEL 1.8 MG/DL (1.8-2.4); PHOSPHORUS LEVEL 2.2 MG/DL (2.5-4.9); POTASSIUM SERUM 3.8 MEQ/L (3.5-5.1); SODIUM LEVEL 139 MEQ/L (136-145)
[2020-12-07 19:35] LABS: CK-MB VALUE MASS < 1.0 NG/ML (<3.6); CPK CREATINE PHOSPHOKINASE 110 U/L (39-308); MB/CK RELATIVE INDEX 0.91 (< OR =4)
--- NOTE | 2020-12-07 20:02 | IPNPDOC ---
Text Note Date of Service The patient was seen on 12/07/20. NOTE SUBJECTIVE: Patient actually reports significant improvement in his chest pain today. He states that yesterday he was barely able to take a deep breath without having significant retrosternal sharp pain. Today he states that he is able to take a very deep breath with only mild pain at this time. Repeat antibody test shows that he does not have any active from Covid 19 infe ction, therefore Covid 19 precautions can be discontinued at this time. This afternoon he had a sudden onset of atrial fibrillation with rapid ventricular response. He apparently has never had atrial fibrillation in the past, although he did present to the ER yesterday with sinus tachycardia. Kat ent had 3 doses of Lopressor, and while his heart rate was improved from the 150's down to about 110, he still remained in RVR. Metoprolol tartrate 37.5 mg every 6 hours with hold parameters is ordered. Patient is completely asymptomatic at this time, as a matter fact he has not had any exacerbation of his chest pain, and remainder of his vital signs remained stable. Cardiac marker panel, EKG, chest x-ray, echocardiogram, and cardiology consult ordered. He had a repeat CTA performed today which was negative for pulmonary embolism. Comparison with yesterday's EKG shows new onset atrial fibrillation, but otherwise waveforms are essentially unchanged. REVIEW OF SYSTEMS: Neg except for what is mentioned above PHYSICAL EXAMINATION: CONSTITUTIONAL: No acute distress, resting comfortably, AAO x 3 EYES: PERRLA, EOM intact HENT, MOUTH: Normocephalic, atraumatic, moist mucous membranes NECK: SUPPLE, no JVD, no lymphadenopathy, no carotid bruit CV: tachycardia, no murmurs/rubs/gallops RESPIRATORY:Pain only with deep inspiration, apparently much improved since yesterday, even during A. fib with RVR. Clear to auscultation bilaterally, no rales/rhonchi/wheezes GI: BS positive in 4 quadrants, soft, nontender, nondistended, no rebound or guarding, no organomegaly : Deferred MUSCULOSKELETAL: Normal ROM of all joints. No cyanosis, clubbing, swelling, joint deformity, extremity edema INTEGUMENTARY: Intact, no rashes, no lesions, no erythema NEUROLOGIC: no tremoring or shaking, Cranial Nerves II-XII are intact, no focal deficits PSYCHIATRIC: Mood and affect are normal ASSESSMENT: 60-year-old male with past medical history of hypertension, alcohol abuse, irritable bowel syndrome, white coat syndrome, anxiety, anemia, questionable asthma, GERD, history of Covid 19 infection 07/2021 admitted for chest pain rule 2/2 to pulmonary emboli vs. acute coronary syndrome vs. pneumonia, questionable alcohol withdrawal. PLAN: Chest pain rule 2/2 to pulmonary emboli vs. PNA vs. ACS -Repeat CTA today does not demonstrate any pulmonary emboli. Shows significant improvement in his consolidations. No evidence for acute coronary syndrome at this time. Consolidative atelectasis vs. infiltrates (PNA) posterior lower lung zones, sepsis -WBC improving, procalcitonin negative, CT of the chest shows significant improvement in what previously was considered to be consolidative atelectasis versus infiltrates. IV antibiotics will be discontinued at this time. Continue to monitor. Hypertensive urgency -Hx of uncontrolled BP since a young age, also has Whitecoat syndrome, anxiety per patient -BP was still elevated until he was given 3 doses of Lopressor -Improved with better pain control -F/u renal US as an outpatient to r/o anatomical cause -If BP goes up too much, decrease or stop fluids -C/w pain control above, incr amlodipine dose, lisinopril 20 mg PO daily, hydralazine PRN Alcohol abuse with concern for alcohol withdrawl -ETOH still elevated at 0.051, last drank 5-6 vodka tonics 12/05/20 -AAOx3, sweaty palms with no tremoring -CIWA protocol: ativan PRN, thiamine, folic acid, MV Anxiety -Ativan PRN IBS -Stable -C/w home meds 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 Asthma -Albuterol PRN GERD -C/w PPI DVT px -Since the patient does not have a PE, therapeutic Lovenox will be discontinued and he will be started on 40 mg Lovenox daily for DVT prophylaxis. DISPOSITION: Admitted as acute inpatient. Plan is discharge home when medically improved. VS,Fishbone, I+O VS, Fishbone, I+O Laboratory Tests 12/07/20 07:10 Vital Signs Date Time Temp Pulse Resp B/P (MAP) Pulse Ox O2 Delivery O2 Flow Rate FiO2 12/07/20 17:33 123 128/81 12/07/20 16:10 98.0 16 92 Room Air I&O- Last 24 Hours up to 6 AM 12/07/20 05:59 Intake Total 500 ml Output Total 650 ml Balance -150 ml ADIS ARIZMENDI DO Dec 07, 2020 17:46
[2020-12-07 20:18] LABS: TROPONIN I < 0.02 NG/ML (< 0.10)
[2020-12-07] MEDS: RAMELTEON 8 MG TAB (ROZEREM) PO SCH (20:40)
[2020-12-08] VITALS (9 sets, daily range): BP systolic 122–153; BP diastolic 78–97
[2020-12-08] MEDS: METOPROLOL TART 12.5 MG PER 1/2 TAB PO SCH ×3 (00:07→13:27)
[2020-12-08 01:13] LABS: CK-MB VALUE MASS < 1.0 NG/ML (<3.6); CPK CREATINE PHOSPHOKINASE 112 U/L (39-308); MB/CK RELATIVE INDEX 0.89 (< OR =4); TROPONIN I < 0.02 NG/ML (< 0.10)
[2020-12-08] MEDS: LORazepam 2 MG TAB PO PRN ×3 (05:37→23:51)
[2020-12-08] MEDS: NS 1,000 ML IV SCH (05:39)
[2020-12-08 06:42] LABS: HEMATOCRIT 45.9 % (42.0-52.0); HEMOGLOBIN 16.3 g/dl (13.5-17.5); MEAN CORPUSCULAR HEMOGLOBIN 37.6 pg (27.0-33.0); MEAN CORPUSCULAR HGB CONC 35.5 g/dl (32.0-36.5); PLATELET COUNT, AUTOMATED 189 10^3/uL (150-450); RED BLOOD COUNT 4.33 10^6/uL (4.30-6.10); WHITE BLOOD COUNT 9.7 10^3/uL (4.0-10.0)
[2020-12-08 07:18] LABS: ALBUMIN 3.2 GM/DL (3.2-5.2); ALT/SGPT 23 U/L (12-78); BILIRUBIN,TOTAL 0.5 MG/DL (0.2-1.0); BLOOD UREA NITROGEN 16 MG/DL (7-18); CALCIUM LEVEL 8.7 MG/DL (8.5-10.1); CARBON DIOXIDE LEVEL 26 MEQ/L (21-32); CHLORIDE LEVEL 108 MEQ/L (98-107); CK-MB VALUE MASS < 1.0 NG/ML (<3.6); CPK CREATINE PHOSPHOKINASE 107 U/L (39-308); CREATININE FOR GFR 1.22 MG/DL (0.70-1.30); GLOMERULAR FILTRATION RATE > 60.0 (>56); GLUCOSE, FASTING 98 MG/DL (70-100); MB/CK RELATIVE INDEX 0.93 (< OR =4); SODIUM LEVEL 141 MEQ/L (136-145); TROPONIN I < 0.02 NG/ML (< 0.10)
[2020-12-08] MEDS: ENOXAPARIN 40MG/0.4ML SYRINGE (J1650 PER 10MG) SC SCH (08:45)
[2020-12-08] MEDS: OMEPRAZOLE 20 MG CAP PO SCH (08:46)
[2020-12-08] MEDS: CitaloPRAM (CeleXA) 20 MG TAB PO SCH (08:47)
[2020-12-08] MEDS: MULTIVITAMINS/MINERALS THERAP 1 TAB PO SCH (08:47)
[2020-12-08] MEDS: THIAMINE 100 MG TAB PO SCH ×2 (08:47→20:47)
[2020-12-08] MEDS: DICYCLOMINE 10 MG CAP PO SCH ×2 (08:47→20:47)
[2020-12-08] MEDS: FOLIC ACID 1 MG TAB PO SCH (08:47)
[2020-12-08] MEDS: FLUTICASONE PROP 0.05% NASAL SPRAY 16 GM (FLONASE) SCH (08:48)
[2020-12-08] MEDS: chlordiazePOXIDE 25 MG CAP PO SCH ×2 (10:34→20:47)
--- NOTE | 2020-12-08 15:59 | IPNPDOC ---
Text Note Date of Service The patient was seen on 12/08/20. NOTE SUBJECTIVE: Patient actually reports significant improvement in his chest pain today. He states that yesterday he was barely able to take a deep breath without having significant retrosternal sharp pain. Today he states that he is able to take a very deep breath with only mild pain at this time. Repeat antibody test shows that he does not have any active from Covid 19 infe ction, therefore Covid 19 precautions can be discontinued at this time. REVIEW OF SYSTEMS: Neg except for what is mentioned above PHYSICAL EXAMINATION: CONSTITUTIONAL: No acute distress, resting comfortably, AAO x 3 EYES: PERRLA, EOM intact HENT, MOUTH: Normocephalic, atraumatic, moist mucous membranes NECK: SUPPLE, no JVD, no lymphadenopathy, no carotid bruit CV: tachycardia, no murmurs/rubs/gallops RESPIRATORY:Pain only with deep inspiration, apparently much improved since yesterday, even during A. fib with RVR. Clear to auscultation bilaterally, no rales/rhonchi/wheezes GI: BS positive in 4 quadrants, soft, nontender, nondistended, no rebound or guarding, no organomegaly : Deferred MUSCULOSKELETAL: Normal ROM of all joints. No cyanosis, clubbing, swelling, joint deformity, extremity edema INTEGUMENTARY: Intact, no rashes, no lesions, no erythema NEUROLOGIC: no tremoring or shaking, Cranial Nerves II-XII are intact, no focal deficits PSYCHIATRIC: Mood and affect are normal ASSESSMENT: 60-year-old male with past medical history of hypertension, alcohol abuse, irritable bowel syndrome, white coat syndrome, anxiety, anemia, questionable asthma, GERD, history of Covid 19 infection 07/2021 admitted for chest pain rule 2/2 to pulmonary emboli vs. acute coronary syndrome vs. pneumonia, questionable alcohol withdrawal. PLAN: New Onset Atrial fibrillation with rapid ventricular response - Remains asymptomatic, chest pain from admission is still much improved, clinical condition is still stable -Patient had 3 doses of Lopressor 12/07/20 without converting back to sinus -Metoprolol tartrate 37.5 mg every 6 hours was given the past 24 hours, will increase dose to 50mg Q6H with hold parameters -he still remains in RVR. - Cardiac marker panel, EKG, chest x-ray, and CTA all odered, none of which provide a definite etiology. - echocardiogram still pending - cardiology consult placed. - Most likely etiology at this point is alcohol withdrawal, pt has recieved a few doses of ativan per [facility] protocol, Librium will be started today - CHAdsVasc score is 1 given history of hypertension. Will hold anticoagulation at this time as this is likely secondary to alcohol withdrawal, and it is expected that he will convert back to sinus rhythm. Chest pain rule 2/2 to pulmonary emboli vs. PNA vs. ACS -Pain is significantly improved -Repeat CTA today does not demonstrate any pulmonary emboli, and consolidations are much improved (the 1st CTA had motion artifact & repeat was recommended). Consolidative atelectasis vs. infiltrates (PNA) posterior lower lung zones, seps is -WBC within normal limits. procalcitonin negative, CT of the chest shows significant improvement in what previously was considered to be consolidative atelectasis versus infiltrates. -IV antibiotics discontinued at this time. Continue to monitor. Hypertensive urgency -Hx of uncontrolled BP since a young age, also has hx of White coat syndrome, anxiety per patient -BP remains elevated even with metoprolol added - Continue home dose of amlodipine and lisinopril for now, these may need to be increased as well. 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 Plan is discharge home when medically improved. VS,Fishbone, I+O VS, Fishbone, I+O Laboratory Tests 12/07/20 18:00 12/08/20 06:06 Vital Signs Date Time Temp Pulse Resp B/P (MAP) Pulse Ox O2 Delivery O2 Flow Rate FiO2 12/08/20 13:27 115 153/96 12/08/20 13:00 17 97 Room Air 12/08/20 08:00 99.0 I&O- Last 24 Hours up to 6 AM 12/08/20 05:59 Intake Total 3060 ml Output Total 1775 ml Balance 1285 ml ADIS ARIZMENDI DO Dec 08, 2020 15:59
[2020-12-08] MEDS: METOPROLOL TART 50 MG TAB PO SCH ×2 (17:54→23:44)
[2020-12-08] MEDS: RAMELTEON 8 MG TAB (ROZEREM) PO SCH (20:47)
[2020-12-09] VITALS (7 sets, daily range): BP systolic 119–143; BP diastolic 68–88
[2020-12-09] MEDS: METOPROLOL TART 50 MG TAB PO SCH ×2 (06:00→12:48)
[2020-12-09 07:36] LABS: HEMATOCRIT 47.6 % (42.0-52.0); HEMOGLOBIN 17.2 g/dl (13.5-17.5); MEAN CORPUSCULAR HEMOGLOBIN 37.6 pg (27.0-33.0); MEAN CORPUSCULAR HGB CONC 36.1 g/dl (32.0-36.5); MEAN CORPUSCULAR VOLUME 104.2 fl (80.0-96.0); PLATELET COUNT, AUTOMATED 194 10^3/uL (150-450); RED BLOOD COUNT 4.57 10^6/uL (4.30-6.10); WHITE BLOOD COUNT 8.2 10^3/uL (4.0-10.0)
[2020-12-09 07:52] LABS: BLOOD UREA NITROGEN 23 MG/DL (7-18); CARBON DIOXIDE LEVEL 23 MEQ/L (21-32); CHLORIDE LEVEL 109 MEQ/L (98-107); GLOMERULAR FILTRATION RATE > 60.0 (>56); GLUCOSE, FASTING 86 MG/DL (70-100); POTASSIUM SERUM 3.9 MEQ/L (3.5-5.1); SODIUM LEVEL 140 MEQ/L (136-145)
[2020-12-09 07:53] LABS: ALBUMIN 3.4 GM/DL (3.2-5.2); ALT/SGPT 26 U/L (12-78); BILIRUBIN,TOTAL 0.5 MG/DL (0.2-1.0); TOTAL PROTEIN 7.1 GM/DL (6.4-8.2)
[2020-12-09] MEDS: FOLIC ACID 1 MG TAB PO SCH (08:48)
[2020-12-09] MEDS: chlordiazePOXIDE 25 MG CAP PO SCH (08:48)
[2020-12-09] MEDS: CitaloPRAM (CeleXA) 20 MG TAB PO SCH (08:49)
[2020-12-09] MEDS: ENOXAPARIN 40MG/0.4ML SYRINGE (J1650 PER 10MG) SC SCH (08:49)
[2020-12-09] MEDS: OMEPRAZOLE 20 MG CAP PO SCH (08:49)
[2020-12-09] MEDS: MULTIVITAMINS/MINERALS THERAP 1 TAB PO SCH (08:49)
[2020-12-09] MEDS: DICYCLOMINE 10 MG CAP PO SCH (08:49)
[2020-12-09] MEDS: FLUTICASONE PROP 0.05% NASAL SPRAY 16 GM (FLONASE) SCH (08:49)
[2020-12-09] MEDS ORDERED: METOPROLOL TART 50 MG TAB PO ONE (09:00)
--- NOTE | 2020-12-09 09:52 | ECGEPIP ---
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
[2020-12-09] MEDS ORDERED: APIXABAN 5 MG TAB (ELIQUIS) PO ONE (13:00)
[2020-12-09] MEDS ORDERED: FLECAINIDE 50MG TABLET PO ONE ×2 (14:00→15:30)
--- NOTE | 2020-12-09 14:38 | CR ---
CONSULTATION DATE: 12/09/2020 I was asked by Dr. Diaz to see Mr. Garcia because of atrial fibrillation. HISTORY OF PRESENT ILLNESS: He is a pleasant 60-year-old man with history of hypertension, irritable bowel syndrome, anxiety and GERD who presented to [facility] on December 06 with fairly sudden onset of severe, sharp retrosternal chest discomfort radiating to his shoulders and back that was markedly aggravated by changing position or taking deep breaths. He said that was awoken from sleep around 3 o'clock in the morning and eventually came to the hospital a few hours later because the pain was intolerable. On ER evaluation, he was found to be in sinus tachycardia. The EKG did not reveal any obvious acute ST-T abnormalities even though he goddard have some degree of ST segment elevation in the precordial leads that have been chronic. He had CT angiography of the chest that was of poor quality due to motion artifact but there were bibasilar infiltrates and the pulmonary embolism could not have been reliably ruled out. He was admitted for further management and was stared on anticoagulation but the follow-up CT angiography the next day ruled out pulmonary embolism. He was about to be discharged but then on December 07 which is two days ago, he went into atrial fibrillation with rapid ventricular response. He was started on metoprolol for rate control which so far has not been completely successful. An echocardiogram was performed yesterday. It revealed preserved or even hyperdynamic LV systolic function but there is biatrial enlargement and dilation of the ascending aorta that measures 4.6 cm, no obvious pericardial effusion and no gross valvular abnormalities even though he does have mild aortic insufficiency. Today the patient tells me that he has no awareness of the atrial fibrillation. He follows regularly with his primary care physician, Dr. 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 He does admit to significant alcohol use. He says he drinks probably most of the day, so a variable amount from 1-2 drinks but also on some days has six or more, usually vodka. PAST MEDICAL HISTORY: 1. Hypertension. 2. Irritable bowel syndrome. 3. Anxiety. 4. GERD. SURGICAL HISTORY: 1. Bilateral arthroscopic knee surgeries. 2. Right trigger finger surgery. FAMILY HISTORY: Father of metastatic cancer in his 50s. Mother in her 80s ultimately of congestive heart failure. To the best of his understanding, she did not have coronary artery disease. SOCIAL HISTORY: The patient is . He lives with his girlfriend and son. 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 He does not smoke and never did. He drinks alcohol also above. OUTPATIENT MEDICATIONS: 1. Albuterol as needed. 2. Xanax 0.25 mg as needed for anxiety. 3. Lotrel 5/20 mg daily. 4. Citalopram 20 mg a day. 5. Dicyclomine 10 mg twice a day. 6. Fluticasone nasal spray. 7. Folic acid 2 mg a day. 8. Levocetirizine 5 mg daily. 9. Omeprazole 20 mg daily. REVIEW OF SYSTEMS: He denies any recent illnesses, specifically denies any recent fever, chills, nausea, vomiting or diarrhea. He was diagnosed with COVID infection in late July, but was not severely ill. He denies any prior episodes of atrial fibrillation or chest discomfort. He denies cardiac problems. No PND, no orthopnea, no abdominal pain as a rule. No peripheral edema, no history of syncope. PHYSICAL EXAMINATION: Mr. Garcia is a 60-year-old man who appears approximately his age. On first glance, he appears in good physical shape. Last set of vital signs: Blood pressure 143/71, heart rate 100-220s, atrial fibrillation. He is afebrile. Saturation is 96% on room air. His fluid balance yesterday was recorded approximately equal. Weight was 93.3 kilograms. He is alert, oriented, appropriate, provides good history. His JVP is not high. Lungs are clear. I appreciate good air movement without any air movement without any wheezing, crackles or rhonchi. Heart exam reveals somewhat muffled heart sounds but I do not appreciate any murmur, gallop or rub. The rhythm is irregularly irregular. Abdomen is soft, no tenderness or hepatosplenomegaly. Extremities are free of edema. Peripheral pules are palpable bilaterally. Neurologically, he is intact. LABORATORY DATA: Normal CBC. Normal basic metabolic panel. Normal liver function tests. He had three sets of cardiac enzymes that were all negative. His C-reactive protein was elevated at 7.7. Albumin is 3.3. I do not appreciate that TSH was drawn. Toxicology screen on admission was positive for opiates, cannabinoids and ethyl alcohol. Serology screen was positive for COVID-2 by PCR. Urinalysis was 2+ positive for blood. Chest x-ray and CT angiography of the chest as per history of present illness. He has two EKGs. The initial one is from the admission, revealed sinus tachycardia with diffuse ST abnormalities and then another one is from December 07 at 1733 that reveals atrial fibrillation with mildly tachycardic rate. Echocardiogram: As per HPI. l ASSESSMENT AND PLAN: Mr. Garcia is a 60-year-old man with history of hypertension but no prior of coronary artery disease or arrhythmias. He presented with what appears to sound like either musculoskeletal or pleuritic type of chest discomfort that subsided within approximately 10-12 hours on December 06. There are no convincing supporting data to make a diagnosis of pericarditis even though I would consider that in differential diagnosis but the echocardiogram does not show pericardial effusion. CT angiography does not show pericardial effusion or thickened pericardium. There are no convincing changes suggestive of pericarditis on EKG even though there some subtle features in that direction. Pain resolved also too rapidly in order to be due to pericarditis. Consequently, I suspect that the pain was most likely of musculoskeletal etiology. The second and more serious issue is that of atrial fibrillation. My first impression is that it is alcohol related. He probably has some component of underlying hypertensive heart disease. Unfortunately, it has not resolved within 24 hours spontaneously as most of alcohol-induced episodes of atrial fibrillation do. Consequently, I am afraid that if we let patient go home, it may not resolve spontaneously so I will attempt to restore sinus mechanism using flecainide. He has not been anticoagulated but the duration of arrhythmia is less than 48 hour and is overall low risk for stroke on account of only additional risk factor being hypertension. I still will give him single dose of Eliquis at least to cover the period of when he received antiarrhythmics. We will give him 150 mg of oral flecainide and if not successful, he can get additional dose hopefully that will restore sinus mechanism. In the near future, he should be taking at least an aspirin to reduce the risk of stroke. And finally somewhat unexpected was finding of dilated ascending aorta by echocardiogram. This is something that will require followup and I will see him in the office. Provided patient converts to sinus, it needs to be documented by EKG I would watch him additional couple hours on telemetry but provided he remains in sinus rhythm, I think he can be discharged home even later today. LORENA
[2020-12-09] MEDS ORDERED: METO1TAB33 PO (18:03)
[2020-12-09] MEDS ORDERED: ASPI-424 PO (18:03)
[2020-12-09] MEDS ORDERED: METOPROLOL SUCC (TopROL XL) 100MG *XL* TAB PO ONE (18:15)
--- NOTE | 2020-12-09 19:10 | DS.PDOC ---
Discharge Summary General Date of Admission Dec 06, 2020 at 13:20 Date of Discharge 12/09/2020 Discharge Summary PRIMARY CARE PHYSICIAN: Dr. Dayne Randall MD ATTENDING AT TIME OF DISCHARGE: Dr. Adis Arizmendi, DISCHARGE DIAGNOS(E)S: Chest pain, unspecified etiology. Suspected to be musculoskeletal in nature New onset atrial fibrillation with rapid ventricular response (which began after his chest pain subsided) Hypertensive urgency Alcohol withdrawal Hypertension Irritable bowel syndrome Anxiety GERD HPI & HOSPITAL COURSE: The patient presented to the emergency department with severe sharp chest pain that seemed to originate in the sternal area and wrap around to his back. CT angiogram of the chest, chest x-ray, echocardiogram, EKG, serial cardiac markers, infectious workup, were all performed and did not show any etiology for his chest pain. He was in sinus tachycardia upon arrival to the ED. Within 24 hours his chest pain began to subside without any specific treatment, and he was able to take a deep breath without any pain, and we were preparing him for discharge from the hospital. Then on 12/07/20 he unexpectedly went into atrial fibrillation with rapid ventricular response with a rate of approximately 150. He was given 3 doses of Lopressor which reduced his heart rate to approximately 110, and he was continued over to metoprolol tartrate PO 37.5 mg every 6 hours. He did not convert to sinus rhythm in the next 12 hours, therefore his dose was increased to 50 mg PO every 6 hours. Most likely etiology for his atrial fibr illation at this time is that of alcohol withdrawal. Since he had gone over 24 hours without converting, cardiology was consulted. Per their recommendations he was given a dose of flecainide which after a few hours was still unsuccessful in converting him to sinus rhythm, so a second dose was given, and then this afternoon he finally did convert back to sinus rhythm. We will send him home on metoprolol succinate 100 mg daily, and since his CHADsVASc score is only 1 (history of hypertension) the decision was made not to anticoagulate him, but rather start him on 81 mg aspirin daily. During this entire time he has been in atrial fibrillation with RVR he has been completely asymptomatic, blood pressures have been stable, and he has essentially been unaware of his irregular heartbeat. Now that he is back in sinus rhythm he appears stable for discharge. PHYSICAL EXAMINATION ON DISCHARGE: GENERAL: Awake, alert, oriented 3. He is in no acute distress at this time. CARDIOVASCULAR EXAMINATION: Regular rate and rhythm, with no rubs, gallops, or murmur. RESPIRATORY EXAMINATION: Clear to auscultation bilaterally with no wheezes, rales, or rhonchi. ABDOMINAL EXAMINATION: Soft, nontender, nondistended. Bowel sounds present. EXTREMITIES: No clubbing or edema noted. 2+ pulses in the radial bilaterally. DISPOSITION: Home DISCHARGE INSTRUCTIONS: Recommend following up with his primary care provider and Dr. Louis, within the next 2 weeks. Diet as tolerated. Activity as tolerated. If symptoms return, or if you experience worsening of your symptoms, please call your doctor or return to the emergency department. Vital Signs/I&Os Vital Signs Date Time Temp Pulse Resp B/P (MAP) Pulse Ox O2 Delivery O2 Flow Rate FiO2 12/09/20 18:00 68 135/68 12/09/20 14:20 98.1 19 95 Room Air I&O- Last 24 Hours up to 6 AM 12/09/20 06:00 Intake Total 600 ml Output Total 650 ml Balance -50 ml Laboratory Data Labs 24H Laboratory Tests 2 12/09/20 06:57: Nucleated Red Blood Cells % (auto) 0.0, Anion Gap 8, Glomerular Filtration Rate > 60.0, Calcium Level 9.0, Total Bilirubin 0.5, Aspartate Amino Transf (AST/SGOT) 18, Alanine Aminotransferase (ALT/SGPT) 26, Alkaline Phosphatase 87, Total Protein 7.1, Albumin 3.4, Albumin/Globulin Ratio 0.9 CBC/BMP Laboratory Tests 12/09/20 06:57 Microbiology Microbiology 12/06/20 Blood Culture - Preliminary, Resulted No Growth after 72 hours. All specime... 12/06/20 Blood Culture - Preliminary, Resulted No Growth after 72 hours. All specime... Discharge Medications Scheduled Amlodipine/Benazepril (Lotrel 5-20 mg Capsule) 1 Each Capsule, 1 EACH PO DAILY, (Reported) Aspirin (Adult Low Dose Aspirin EC) 81 Mg Tablet.dr, 81 MG PO DAILY Chromium/Herbal Complex No.238 (Green Tea Caplet) 1 Tab Tab, 2 TAB PO DAILY, (Reported) Citalopram Hydrobromide (Citalopram HBr) 20 Mg Tab, 20 MG PO DAILY, (Reported) Dicyclomine HCl (Dicyclomine HCl) 10 Mg Capsule, 10 MG PO BID, (Reported) Fluticasone Propionate (Fluticasone Propionate) 50 Mcg/Act Spr, 1 SPRAY NA DAILY, (Reported) Folic Acid (Folic Acid) 1 Mg Tab, 2 MG PO DAILY, (Reported) Levocetirizine Dihydrochloride (Levocetirizine Dihydrochloride) 5 Mg Tab, 5 MG PO DAILY, (Reported) Metoprolol Succinate (Metoprolol Succinate) 100 Mg Tab.er.24h, 100 MG PO DAILY Omeprazole (Omeprazole) 20 Mg Cap, 20 MG PO DAILY, (Reported) Vitamin B Complex (Vitamin B Complex) 1 Each Tablet, 1 TAB PO DAILY, (Reported) Scheduled PRN Albuterol Sulfate (Ventolin Hfa) 108 Mcg/Act Aer, 108 MCG INH PRN PRN for WHEEZING, (Reported) Alprazolam (Xanax) 0.25 Mg Tab, 0.25 MG PO BIDP PRN for ANXIETY/AGITATION, (Reported) Ondansetron (Ondansetron Odt) 4 Mg Tab.rapdis, 4 MG PO Q6H PRN for NAUSEA OR VOMITING, (Reported) Miscellaneous Medications [allergy shots] , (Reported) Allergies Coded Allergies: ENVIROMENTAL (Verified Allergy, Unknown, 02/08/18) Sulfa (Sulfonamide Antibiotics) (Verified Allergy, Unknown, 12/06/20) azithromycin (Verified Adverse Reaction, Unknown, HEADACHE, 12/06/20) ADIS ARIZMENDI DO Dec 09, 2020 19:10
--- NOTE | 2020-12-10 12:50 | ECHO ---
DATE OF PROCEDURE: 12/08/2020 Age: 60 Gender: Male Height: 180 cm Weight: 93 kg REFERRING PHYSICIAN: ADIS ARIZMENDI DO INDICATION: Atrial fibrillation. MEASUREMENTS: IVS 1.2 cm LV 3.9 cm LVPW 1.2 cm LA 4.6 cm Aortic root 3.9 cm Ascending aorta 4.6 cm RV 3.0 cm IVC 1.8 cm FINDINGS: This study is of fair technical quality. The patient is in atrial fibrillation with rapid ventricular response and slightly wide QRS complex. Left ventricle is normal size and has probably hyperdynamic contractility, I estimate EF around 65% to 70%. Right ventricle appears to have normal size and systolic function. The left atrium is moderately enlarged (the left atrial volume index was 38 mL/m2). Right atrium also appeared dilated. Aortic valve is tricuspid. It appears mildly sclerotic, but mobility is preserved. Mitral and tricuspid valves appear normal. Limited views of pulmonary valve also appear normal. No pericardial effusion is noted. Inferior vena cava is normal size and appropriately collapses with inspiration. The aortic root and ascending aorta are dilated (3.9 and 4.6 cm respectively). The aortic arch and abdominal aorta were not well seen. Doppler interrogation reveals no aortic stenosis and trace aortic insufficiency. There is mild mitral insufficiency. Tricuspid and pulmonic valves appear functionally competent. Evaluation of diastolic function is inconclusive due to underlying atrial fibrillation. CONCLUSIONS: 1. Study is of fair technical quality, underlying atrial fibrillation with tachycardic response and mildly wide QRS complex. 2. Normal LV size with mild LVH and hyperdynamic LVEF, estimated around 70%. 3. Aortic sclerosis with trivial insufficiency and no stenosis. 4. Normal central venous pressure. 5. Unable to estimate pulmonary artery pressure. 6. Dilated aortic root and ascending aorta (3.9 and 4.6 cm respectively). MTDD
== END 2020-12-09 18:55 | disposition home or self-care (01) | DRG 313 ==
LOC: M ED 05:51 → M ED INP 13:20 → ENRESERV 14:18 → CANRESERV 14:18 → ENRESERV 19:02 → M 4MAIN 20:07 → M MSPAV 12-09 14:10
PROVIDERS: ADMIT Internal Medicine; ATTEND Neuromusculoskeletal Medicine & OMM
DX: R07.89 Other chest pain (principal); F10.139 Alcohol abuse with withdrawal, unspecified; F10.188 Alcohol abuse with other alcohol-induced disorder; I11.9 Hypertensive heart disease without heart failure; K58.9 Irritable bowel syndrome, unspecified; F41.9 Anxiety disorder, unspecified; D64.9 Anemia, unspecified; J45.909 Unspecified asthma, uncomplicated; K21.9 Gastro-esophageal reflux disease without esophagitis; I77.811 Abdominal aortic ectasia; I16.0 Hypertensive urgency; I48.91 Unspecified atrial fibrillation; D50.9 Iron deficiency anemia, unspecified; Z79.899 Other long term (current) drug therapy; Z88.2 Allergy status to sulfonamides; Z88.1 Allergy status to other antibiotic agents; Z86.16 Personal history of COVID-19

== ENCOUNTER → 2021-08-26 | Outpatient (CLI) | payer OTHER ==
[~2021-08-26] MED LIST changes: -AMLO10CA22 PO; +AMLO10CA30 PO; +ASPI-424 PO; +DICY10CA13 PO; +EQL50TAB2 PO; +LOTR52CA PO; +METO1TAB33 PO; +OMEP40CA4 PO; -OMEP40CA97 PO; +ONDA4TAB6 PO
[2021-08-26 16:58] LABS: BASO % 0.5 % (0.0-1.0); EOS # 0.2 10^3/uL (0.0-0.5); EOS % 1.7 % (0.0-3.0); HEMATOCRIT 46.1 % (42.0-52.0); HEMOGLOBIN 16.2 g/dl (13.5-17.5); LYMPH # 1.7 10^3/uL (1.5-5.0); LYMPH % 19.6 % (24.0-44.0); MEAN CORPUSCULAR HEMOGLOBIN 36.8 pg (27.0-33.0); MEAN CORPUSCULAR HGB CONC 35.1 g/dl (32.0-36.5); MEAN CORPUSCULAR VOLUME 104.8 fl (80.0-96.0); MONO # 0.5 10^3/uL (0.0-0.8); MONO % 5.9 % (2.0-8.0); NEUTROPHILS # 6.3 10^3/uL (1.5-8.5); NEUTROPHILS % 71.8 % (36.0-66.0); PLATELET COUNT, AUTOMATED 192 10^3/uL (150-450); WHITE BLOOD COUNT 8.8 10^3/uL (4.0-10.0)
[2021-08-26 17:14] LABS: ALBUMIN 3.8 GM/DL (3.2-5.2); ALT/SGPT 34 U/L (12-78); BILIRUBIN,TOTAL 0.9 MG/DL (0.2-1.0); BLOOD UREA NITROGEN 16 MG/DL (7-18); CALCIUM LEVEL 9.3 MG/DL (8.8-10.2); CARBON DIOXIDE LEVEL 27 MEQ/L (21-32); CHLORIDE LEVEL 107 MEQ/L (98-107); CHOLESTEROL LEVEL 179 MG/DL (<200); CHOLESTEROL RISK RATIO 3.653 (<5); CREATININE FOR GFR 1.29 MG/DL (0.70-1.30); GLOMERULAR FILTRATION RATE > 60.0 (>49); GLUCOSE, FASTING 89 MG/DL (70-100); HDL CHOLESTEROL 49 MG/DL (>40); LDL CHOLESTEROL 103 MG/DL (<100); NON-HDL-C 130 MG/DL; POTASSIUM SERUM 3.9 MEQ/L (3.5-5.1); SODIUM LEVEL 140 MEQ/L (136-145); TOTAL PROTEIN 7.3 GM/DL (6.4-8.2); TRIGLYCERIDES LEVEL 135 MG/DL (<150)
== END ==
LOC: M WUC 11:32
PROVIDERS: ATTEND Internal Medicine
DX: Z00.00 Encounter for general adult medical examination without abnormal findings (principal); I10 Essential (primary) hypertension; D75.89 Other specified diseases of blood and blood-forming organs
CPT/HCPCS: 36415; 80053; 80061; 85025; G0103

== ENCOUNTER → 2022-03-05 | Outpatient (CLI) | payer OTHER ==
[2022-03-05 19:18] LABS: ALT/SGPT 40 U/L (12-78); BILIRUBIN,TOTAL 0.5 MG/DL (0.2-1.0); BLOOD UREA NITROGEN 15 MG/DL (7-18); CALCIUM LEVEL 9.2 MG/DL (8.8-10.2); CARBON DIOXIDE LEVEL 26 MEQ/L (21-32); CHLORIDE LEVEL 106 MEQ/L (98-107); CHOLESTEROL LEVEL 179 MG/DL (<200); CHOLESTEROL RISK RATIO 3.254 (<5); CREATININE FOR GFR 1.28 MG/DL (0.70-1.30); GLOMERULAR FILTRATION RATE > 60.0 (>49); GLUCOSE, FASTING 71 MG/DL (70-100); HDL CHOLESTEROL 55 MG/DL (>40); LDL CHOLESTEROL 103 MG/DL (<100); MAGNESIUM LEVEL 1.9 MG/DL (1.8-2.4); NON-HDL-C 124 MG/DL; POTASSIUM SERUM 3.9 MEQ/L (3.5-5.1); SODIUM LEVEL 139 MEQ/L (136-145); TOTAL PROTEIN 7.6 GM/DL (6.4-8.2); TRIGLYCERIDES LEVEL 103 MG/DL (<150)
[2022-03-05 19:41] LABS: VITAMIN B12 LEVEL 300 PG/ML
[2022-03-05 19:43] LABS: FOLATE 8.8 NG/ML
== END ==
LOC: M PLALAB 14:53
PROVIDERS: ATTEND Internal Medicine
DX: E53.8 Deficiency of other specified B group vitamins (principal); I10 Essential (primary) hypertension; E78.00 Pure hypercholesterolemia, unspecified

== ENCOUNTER → 2022-03-05 | Outpatient (REF) | payer OTHER | LOC: M SFHCPLAZ 14:43 | PROVIDERS: ATTEND Internal Medicine | DX: E53.8 Deficiency of other specified B group vitamins (principal); I10 Essential (primary) hypertension; E78.00 Pure hypercholesterolemia, unspecified; Z53.9 Procedure and treatment not carried out, unspecified reason ==

== ENCOUNTER 2023-05-08 07:42 | Day surgery (SDC) | payer OTHER ==
[~2023-05-08] VITALS: Ht 182.9 cm; Wt 92.1 kg
[~2023-05-08 07:42] MED LIST changes: +ALPR0.25 PO; +CYAN-1 PO; +DICY-61 PO; -DICY10CA13 PO; +FLUT50SP17; -FLUTISP; +METO1TAB7 PO; +NS 1,000 ML IV ONE
[2023-05-08] MEDS ORDERED: propofoL 200 MG/20 ML VIAL As Ordered ONE ×2 (09:18→09:23)
[2023-05-08] MEDS ORDERED: LIDOCAINE 2% 100MG/5ML SDV (FOR ANES.) As Ordered ONE (09:18)
[2023-05-08] MEDS ORDERED: PHENYLephrine 500MCG 5ML (100MCG/ML) SYRINGE As Ordered ONE (09:18)
[2023-05-08 09:57] VITALS: BP 114/78; O2SAT 95
== END 2023-05-08 09:57 | disposition home or self-care (01) ==
LOC: M OPP 07:42
PROVIDERS: ATTEND Internal Medicine Gastroenterology
DX: Z12.11 Encounter for screening for malignant neoplasm of colon (principal); Z86.010 Personal history of colon polyps; Z80.0 Family history of malignant neoplasm of digestive organs; D12.0 Benign neoplasm of cecum; D12.4 Benign neoplasm of descending colon; K63.5 Polyp of colon; K57.30 Diverticulosis of large intestine without perforation or abscess without bleeding; K64.8 Other hemorrhoids; G47.33 Obstructive sleep apnea (adult) (pediatric); Z79.82 Long term (current) use of aspirin; Z79.83 Long term (current) use of bisphosphonates; Z79.899 Other long term (current) drug therapy; Z88.1 Allergy status to other antibiotic agents; Z88.2 Allergy status to sulfonamides
CPT/HCPCS: 45385; 88305; J2371

== ENCOUNTER → 2024-01-07 | Outpatient (CLI) | payer OTHER ==
[~2024-01-07] MED LIST changes: -FLUT50SP17; +FLUTISP; -NS 1,000 ML IV ONE
[2024-01-07 16:09] LABS: BASO % 0.6 % (0.0-1.0); EOS # 0.2 10^3/uL (0.0-0.5); EOS % 2.5 % (0.0-3.0); HEMATOCRIT 48.6 % (42.0-52.0); HEMOGLOBIN 17.6 g/dl (13.5-17.5); LYMPH # 1.7 10^3/uL (1.5-5.0); LYMPH % 26.3 % (24.0-44.0); MEAN CORPUSCULAR HEMOGLOBIN 37.6 pg (27.0-33.0); MEAN CORPUSCULAR HGB CONC 36.2 g/dl (32.0-36.5); MEAN CORPUSCULAR VOLUME 103.8 fl (80.0-96.0); MONO # 0.4 10^3/uL (0.0-0.8); MONO % 5.8 % (2.0-8.0); NEUTROPHILS # 4.1 10^3/uL (1.5-8.5); NEUTROPHILS % 64.5 % (36.0-66.0); PLATELET COUNT, AUTOMATED 189 10^3/uL (150-450); RED BLOOD COUNT 4.68 10^6/uL (4.30-6.10); WHITE BLOOD COUNT 6.4 10^3/uL (4.0-10.0)
[2024-01-07 16:35] LABS: PSA SCREENING 0.33 NG/ML (< 4.00)
[2024-01-07 16:39] LABS: TOTAL 25(OH) VITAMIN D 24.5 NG/ML (20.0-100.0)
[2024-01-07 16:40] LABS: C REACTIVE PROTEIN QUANTITATIV < 0.40 MG/DL (<1.0)
[2024-01-07 16:41] LABS: ALBUMIN 3.7 G/DL (3.2-5.2); ALKALINE PHOSPHATASE 108 U/L (46-116); ALT/SGPT 38 U/L (7.0-40); AST/SGOT 30 U/L (<34); BILIRUBIN,TOTAL 0.6 MG/DL (0.3-1.2); BLOOD UREA NITROGEN 13 MG/DL (9-23); CALCIUM LEVEL 9.1 MG/DL (8.3-10.6); CARBON DIOXIDE LEVEL 27 MMOL/L (20-31); CHLORIDE LEVEL 104 MMOL/L (98-107); CHOLESTEROL LEVEL 177 MG/DL (<200); CHOLESTEROL RISK RATIO 3.76 (<5); CREATININE FOR GFR 1.27 MG/DL (0.70-1.30); FREE T4 0.84 NG/DL (0.89-1.76); GLOMERULAR FILTRATION RATE > 60.0 (>49); GLUCOSE, FASTING 79 MG/DL (74-106); LDL CHOLESTEROL 92.8 MG/DL (<100); POTASSIUM SERUM 4.3 MMOL/L (3.5-5.1); SODIUM LEVEL 137 MMOL/L (136-145); TOTAL PROTEIN 7.4 G/DL (5.7-8.2); TRIGLYCERIDES LEVEL 186 MG/DL (<150)
[2024-01-07 16:42] LABS: VITAMIN B12 LEVEL 674 PG/ML (211-911)
[2024-01-07 16:56] LABS: CREATININE, URINE 112.8 MG/DL; MAU/CREAT RATIO 2.6 MCG/MG (0.0-30.0)
== END ==
LOC: M PLALAB 13:24
PROVIDERS: ATTEND Internal Medicine Hematology
DX: I10 Essential (primary) hypertension (principal); Z12.5 Encounter for screening for malignant neoplasm of prostate; E78.00 Pure hypercholesterolemia, unspecified; I48.0 Paroxysmal atrial fibrillation; E53.8 Deficiency of other specified B group vitamins
CPT/HCPCS: 36415; 80053; 80061; 82043; 82306; 82607; 83036; 83525; 84439; 84443; 85025; 86140; G0103

== ENCOUNTER 2024-05-18 13:54 | Emergency (ER) | payer OTHER ==
[~2024-05-18] VITALS: Ht 182.9 cm; Wt 90.9 kg
[~2024-05-18 13:54] MED LIST changes: +ONDA-282 PO; -ONDA4TAB6 PO
[2024-05-18] MEDS ORDERED: METOPROLOL 5 MG/5 ML VIAL IV SCH (15:20)
[2024-05-18 15:39] VITALS: BP 156/112
[2024-05-18] MEDS: METOPROLOL TART 50 MG TAB PO ONE (15:39)
[2024-05-18 15:40] LABS: HEMATOCRIT 52.4 % (42.0-52.0); HEMOGLOBIN 19.4 g/dl (13.5-17.5); MEAN CORPUSCULAR HEMOGLOBIN 37.8 pg (27.0-33.0); MEAN CORPUSCULAR VOLUME 102.1 fl (80.0-96.0); PLATELET COUNT, AUTOMATED 193 10^3/uL (150-450); RED BLOOD COUNT 5.13 10^6/uL (4.30-6.10)
[2024-05-18 15:41] LABS: ALKALINE PHOSPHATASE 132 U/L (46-116); ALT/SGPT 51 U/L (7.0-40); AST/SGOT 41 U/L (<34); BILIRUBIN,TOTAL 0.7 MG/DL (0.3-1.2); BLOOD UREA NITROGEN 16 MG/DL (9-23); CALCIUM LEVEL 9.7 MG/DL (8.3-10.6); CARBON DIOXIDE LEVEL 25 MMOL/L (20-31); CHLORIDE LEVEL 107 MMOL/L (98-107); CREATININE FOR GFR 1.28 MG/DL (0.70-1.30); GLOMERULAR FILTRATION RATE > 60.0 (>49); GLUCOSE, FASTING 106 MG/DL (74-106); POTASSIUM SERUM 3.8 MMOL/L (3.5-5.1); SODIUM LEVEL 138 MMOL/L (136-145); TOTAL PROTEIN 7.8 G/DL (5.7-8.2)
[2024-05-18 15:43] LABS: THYROID STIMULATING HORMONE 1.775 uIU/ML (0.55-4.78)
[2024-05-18 17:40] VITALS: BP 157/112; TEMP 97.6; O2SAT 99
== END 2024-05-18 17:46 | disposition home or self-care (01) ==
LOC: M ED 13:54
DX: I48.91 Unspecified atrial fibrillation (principal); I10 Essential (primary) hypertension; Z79.82 Long term (current) use of aspirin; Z79.899 Other long term (current) drug therapy; Z88.1 Allergy status to other antibiotic agents; Z88.2 Allergy status to sulfonamides; J30.89 Other allergic rhinitis

== ENCOUNTER → 2024-07-27 | Outpatient (CLI) | payer OTHER ==
[2024-07-27 17:38] LABS: BASO % 0.5 % (0.0-1.0); EOS # 0.2 10^3/uL (0.0-0.5); EOS % 2.7 % (0.0-3.0); HEMATOCRIT 48.7 % (42.0-52.0); LYMPH # 1.6 10^3/uL (1.5-5.0); LYMPH % 23.9 % (24.0-44.0); MEAN CORPUSCULAR HGB CONC 34.9 g/dl (32.0-36.5); MEAN CORPUSCULAR VOLUME 106.1 fl (80.0-96.0); MONO # 0.5 10^3/uL (0.0-0.8); MONO % 7.1 % (2.0-8.0); NEUTROPHILS # 4.3 10^3/uL (1.5-8.5); NEUTROPHILS % 65.5 % (36.0-66.0); PLATELET COUNT, AUTOMATED 166 10^3/uL (150-450); RED BLOOD COUNT 4.59 10^6/uL (4.30-6.10); WHITE BLOOD COUNT 6.6 10^3/uL (4.0-10.0)
[2024-07-27 17:43] LABS: C REACTIVE PROTEIN QUANTITATIV < 0.40 MG/DL (<1.0); TOTAL 25(OH) VITAMIN D 30.7 NG/ML (20.0-100.0)
[2024-07-27 17:44] LABS: ALKALINE PHOSPHATASE 117 U/L (40-129); ALT/SGPT 27 U/L (7.0-40); AST/SGOT 18 U/L (<34); BILIRUBIN,TOTAL 0.5 MG/DL (0.3-1.2); BLOOD UREA NITROGEN 17 MG/DL (9-23); CALCIUM LEVEL 9.7 MG/DL (8.3-10.6); CARBON DIOXIDE LEVEL 30 MMOL/L (20-31); CHLORIDE LEVEL 102 MMOL/L (98-107); CHOLESTEROL LEVEL 218 MG/DL (<200); CHOLESTEROL RISK RATIO 4.16 (<5); CREATININE FOR GFR 1.18 MG/DL (0.70-1.30); GLOMERULAR FILTRATION RATE > 60.0 (>49); GLUCOSE, FASTING 85 MG/DL (74-106); HDL CHOLESTEROL 52.3 MG/DL (>40); LDL CHOLESTEROL 133.5 MG/DL (<100); NON-HDL-C 165.7 MG/DL; SODIUM LEVEL 137 MMOL/L (136-145); THYROID STIMULATING HORMONE 3.003 uIU/ML (0.55-4.78); TOTAL PROTEIN 7.6 G/DL (5.7-8.2); TRIGLYCERIDES LEVEL 161 MG/DL (<150)
[2024-07-27 17:45] LABS: FREE T4 0.85 NG/DL (0.89-1.76)
[2024-07-27 17:46] LABS: VITAMIN B12 LEVEL 690 PG/ML (211-911)
[2024-07-27 17:48] LABS: THYROID PEROXIDASE ANTIBODY < 28.0 U/ML (<60.0)
[2024-07-27 18:06] LABS: CREATININE, URINE 92.2 MG/DL; MALB URINE SIEMENS < 3.0 MG/L
== END ==
LOC: M WUC 11:07
PROVIDERS: ATTEND Student in an Organized Health Care Education/Training Program
DX: I73.81 Erythromelalgia (principal)